=== PATIENT | female | born 1955 | race African-American/Black ===

== ENCOUNTER 2018-05-02 09:32 | Day surgery (SDC) | payer OTHER ==
[2018-04-30 15:01] VITALS: BMI 34.3
[2018-05-02] MEDS ORDERED: BUPIVACAINE HCL/PF 2.5 MG/ML - 30 ML VIAL IJ ONE ×2 (11:47)
[2018-05-02] MEDS ORDERED: MIDAZOLAM HCL 2 MG/2 ML SINGLE DOSE VIAL ONE (12:16)
[2018-05-02] MEDS ORDERED: PROPOFOL 20 ML ONE (12:16)
[2018-05-02] MEDS ORDERED: DEXAMETHASONE SOD PHOSPHATE 4 MG/1 ML VIAL ONE (12:25)
[2018-05-02] MEDS ORDERED: LIDOCAINE HCL 2% JELLY (5 ML/TUBE) ONE (12:25)
[2018-05-02] MEDS ORDERED: ceFAZolin SODIUM 1 GM VIAL ONE (12:25)
[2018-05-02] MEDS ORDERED: ONDANSETRON 4 MG/2 ML VIAL ONE (12:25)
[2018-05-02] MEDS ORDERED: KETOROLAC TROMETHAMINE 30 MG/1 ML VIAL ONE (12:25)
[2018-05-02] MEDS ORDERED: ePHEDrine SULFATE 50 MG/1 ML AMPULE ONE (12:29)
[2018-05-02] MEDS ORDERED: BUPIVACAINE HCL/PF 0.25% (2.5MG/ML) 10 ML VIAL IJ ONE (13:01)
[2018-05-02] MEDS ORDERED: ONDANSETRON 4 MG/2 ML VIAL IVPUSH PRN (13:14)
[2018-05-02] MEDS ORDERED: oxyCODONE HCL 5 MG TABLET PO PRN ×2 (13:14)
[2018-05-02] MEDS ORDERED: PROMETHAZINE HCL 25 MG/1 ML VIAL IVPUSH PRN (13:14)
--- NOTE | 2018-05-02 13:57 | OP ---
DATE OF OPERATION: 05/02/2018 Done at [facility]. SURGEON: Home Osei MD ASSISSTANT: LUCILLE Joe PREOPERATIVE DIAGNOSIS: 1. Right knee medial meniscal tear. 2. Right knee cartilage injury. 3. Right knee synovitis. POSTOPERATIVE DIAGNOSIS: 1. Right knee medial meniscal tear. 2. Right knee cartilage injury. 3. Right knee synovitis. PROCEDURE: 1. Right knee arthroscopy with partial meniscectomy, medial and lateral meniscus, CPT code 2980. 2. Right knee arthroscopy with chondroplasty and abrasion arthroplasty, CPT code 2979. 3. Right knee arthroscopy with synovectomy, CPT code 2975. FINDINGS: 1. Medial meniscus, body, and posterior horn tear/anterior horn tear. 2. Lateral meniscus anterior horn and posterior horn tear. 3. Synovitis, patellofemoral, medial, and lateral notch area. 4. Diffuse grade 2-3 cartilage injury, medial femoral condyle and tibial plateau. 5. ACL and PCL intact. 6. Diffuse grade 1-2 cartilage injury, lateral joint line. 7. Central grade 2 cartilage injury, patella, with grade 2-4 change, patellofemoral trochlea. DESCRIPTION OF PROCEDURE: Informed consent was obtained. The patient came to the operating room, where the lower extremity was prepped and draped in a sterile fashion. A tourniquet was placed on the upper thigh, but not inflated. Using standard arthroscopic technique, a lateral incision and portal was made to allow for introduction of the camera into the suprapatellar bursa. This was then taken to the medial joint line, where under direct visualization, a medial incision and portal was made. Excessive synovium noted in the medial, lateral and patellofemoral and notch area was removed by an upbiter, shaver and Bovie cautery. This was found to bring in inflammatory tissue into the joint surface, a source of pain and dysfunction. Probing of the medial and lateral meniscus found tears, as described in the findings. These were removed with the upbiter and shaver and taken back to a stable rim. Grade 2 to 3 degenerative changes were treated with a chondroplasty, removing all flaking surfaces with low-setting Bovie along the periphery to prevent further flaking. Grade 4 changes, as noted, were treated with an abrasoplasty, creating a bleeding surface at the bone/cartilage interface. Aggressive debridement with shaver/carmen created bleeding surface. Mirco fracture also done when indicated in findings. All areas of the knee were once again reexamined. The knee was then drained and a single suture was placed in all portals. A sterile dressing was placed and the patient was transferred to the recovery room without complication. HOME OSEI M.D. [id number]
[2018-05-02 14:07] VITALS: TEMP 97.4
[2018-05-02] MEDS ORDERED: oxyCODONE HCL 5 MG TABLET ONE (14:08)
[2018-05-02 15:14] VITALS: BP 136/72; PULSE 58
--- NOTE | 2018-05-09 15:00 | PATH ---
Surgical Pathology Report Patient Name: SMITA WADE [facility]. Rec. #: [id number] /Age/Gender: 1955 (Age: 62) / F Account: [id number] [facility] Taken: 05/02/2018 Received: 05/02/2018 Reported: 05/09/2018 Physicians: Home Franco M.D. Specimen(s) Received RIGHT KNEE SHAVINGS Clinical History Right knee internal derangement Final Diagnosis KNEE, RIGHT, ARTHROSCOPIC SHAVINGS: FIBROSYNOVIAL TISSUE AND CARTILAGE. Electronically Signed Aissatou Dillard M.D. Gross Description Received in formalin, labeled "right knee shavings," is a 3.5 x 3.0 x 0.3 cm. aggregate of manning-yellow soft tissue fragments. A appeals representative portion is submitted in one cassette. 05/05/201805/05/2018
== END 2018-05-02 15:15 | disposition home or self-care (01) ==
LOC: FASU 09:32
PROVIDERS: ATTEND Orthopaedic Surgery
PROC: 0SBC4ZZ Excision of Right Knee Joint, Percutaneous Endoscopic Approach (ICD-10-PCS; 2018-05-02)
PROC: 0SBC4ZZ Excision of Right Knee Joint, Percutaneous Endoscopic Approach (ICD-10-PCS; principal; 2018-05-02 11:00)
DX: S83.241A Other tear of medial meniscus, current injury, right knee, initial encounter (principal); S83.281A Other tear of lateral meniscus, current injury, right knee, initial encounter; S83.8X1A Sprain of other specified parts of right knee, initial encounter; M65.861 Other synovitis and tenosynovitis, right lower leg; X58.XXXA Exposure to other specified factors, initial encounter; Y93.9 Activity, unspecified; Y92.9 Unspecified place or not applicable
CPT/HCPCS: 88304-TC; 94760

== ENCOUNTER 2022-09-11 04:25 | Day surgery (SDC) | payer BC ==
[2022-09-06 15:29] VITALS: BMI 33.5
[2022-09-11] MEDS ORDERED: PROPOFOL 40 ML ONE (07:24)
[2022-09-11] MEDS ORDERED: MIDAZOLAM HCL 2 MG/2 ML SINGLE DOSE VIAL ONE (07:26)
[2022-09-11] MEDS ORDERED: IBUPROFEN 800 MG/8 ML IJ IVPB PRN (07:49)
[2022-09-11] MEDS ORDERED: oxyCODONE HCL 5 MG TABLET PO PRN (07:49)
[2022-09-11] MEDS ORDERED: ONDANSETRON 4 MG/2 ML VIAL IVPUSH PRN (07:49)
[2022-09-11] MEDS ORDERED: IBUPROFEN 600 MG TABLET (FP) PO PRN (07:49)
[2022-09-11] MEDS ORDERED: ELECTROLYTE-148 SOLN 1,000 ML IV SCH (08:00)
[2022-09-11] MEDS ORDERED: LIDOCAINE HCL/PF 2% SDV 5ML VIAL ONE (08:16)
[2022-09-11] MEDS ORDERED: DEXAMETHASONE SOD PHOSPHATE 4 MG/1 ML VIAL ONE (08:16)
[2022-09-11] MEDS ORDERED: ROCURONIUM BROMIDE 50 MG/5 ML SYRINGE ONE (08:26)
[2022-09-11] MEDS ORDERED: SEVOFLURANE 250 ML BTL ONE (08:28)
[2022-09-11] MEDS ORDERED: LACTATED RINGERS SOLUTION 1,000 ML IV SCH (09:15)
[2022-09-11 10:46] VITALS: RESP 20
[2022-09-11] MEDS ORDERED: ONDANSETRON 4 MG/2 ML VIAL ONE (11:28)
[2022-09-11 13:57] VITALS: BP 124/68; PULSE 60; TEMP 96.9
== END 2022-09-11 13:57 | disposition home or self-care (01) ==
LOC: JASU-SURG 04:25
PROVIDERS: ATTEND Obstetrics & Gynecology
PROC: 0UB98ZX Excision of Uterus, Via Natural or Artificial Opening Endoscopic, Diagnostic (ICD-10-PCS; principal; 2022-09-11 07:55)
PROC: 0UDB7ZX Extraction of Endometrium, Via Natural or Artificial Opening, Diagnostic (ICD-10-PCS; 2022-09-11 07:55)
DX: N95.0 Postmenopausal bleeding (principal); N84.0 Polyp of corpus uteri
CPT/HCPCS: 88305-TC; 94760